=== PATIENT | male | born 1965 | race Asian ===

== ENCOUNTER 2022-10-06 21:02 | Emergency (ER) | payer OTHER ==
[~2022-10-06] VITALS: Ht 175.3 cm; Wt 84.0 kg
[2022-10-06 23:45] LABS: HEMATOCRIT. 28.4 % (42.0-52.0); HEMOGLOBIN. 9.7 g/dL (14.0-18.0); MEAN CORPUSCULAR VOLUME 87.5 fL (80.0-94.0); MEAN PLATELET VOLUME 6.6 fl (7.4-10.4); PLATELET 283 x1000/uL (130-400); RED BLOOD CELL COUNT 3.25 mill/uL (4.7-6.1); RED CELL DISTRIBUTION WIDTH 18.3 % (11.6-14.6)
[2022-10-06 23:56] LABS: CHLORIDE 93 mEq/L (98-107)
[2022-10-07 00:20] LABS: ETHANOL BLOOD < 10 mg/dL
[2022-10-07 08:06] LABS: PLATELET ESTIMATE NORMAL
[2022-10-07 12:45] VITALS: BP 158/83
[2022-10-08] MEDS ORDERED: IPRATROPIUM/ALBUTEROL 0.5-3(2.5)MG/3ML NEB HHN PRN
[2022-10-08] MEDS ORDERED: GUAIFENESIN 200MG/10ML SUGAR FREE UDC PO PRN
[2022-10-08] MEDS ORDERED: ONDANSETRON HCL 4MG/2ML INJ IV PRN
[2022-10-08] MEDS ORDERED: DOCUSATE SODIUM 100MG CAPSULE PO PRN
[2022-10-08] MEDS ORDERED: MAGNESIUM/ALUMINUM HYDROXIDE/SIMETHICONE 30ML UDC PO PRN
[2022-10-08] MEDS ORDERED: ACETAMINOPHEN 325MG TABLET PO PRN ×2
[2022-10-08] MEDS ORDERED: CLONIDINE 0.1MG TABLET PO PRN
[2022-10-08] MEDS ORDERED: HYDROCODONE/ACETAMINOPHEN 5/325MG TABLET PO PRN
[2022-10-08] MEDS ORDERED: ASPIRIN 81MG EC TABLET PO SCH (09:00)
[2022-10-08] MEDS ORDERED: AMLODIPINE 10MG TABLET PO SCH (09:00)
== END 2022-10-07 13:27 | disposition left against medical advice (07) ==
LOC: ER 21:02 → EDBEDREQ 10-07 03:06 → EDBEDREQTM 10-07 03:06 → ER 10-07 13:27 → CANBEDREQ 10-07 22:59
DX: R55 Syncope and collapse (principal); R77.8 Other specified abnormalities of plasma proteins; Z20.822 Contact with and (suspected) exposure to COVID-19
CPT/HCPCS: 36415; 70450; 71045; 73030; 80053; 80320; 83690; 83880; 84484; 85025; 87426; 93005; 99285; C9803; G0480